=== PATIENT | female | born 1990 | race Caucasian/White ===

== ENCOUNTER 2020-08-03 08:01 | Observation (INO) ==
[2020-08-03] MEDS ORDERED: 0.9 % Sodium Chloride 1,000 ML IVC ONE (08:19)
[2020-08-03 08:39] LABS: Bilirubin,Urine Negative (Negative); Blood,Urine Small (Negative); Clarity,Urine Ex.Turbid (Clear); Color,Urine Yellow (Yellow); Glucose,Urine (UA) Normal (Normal); Ketones,Urine Negative (Negative); Leukocyte Esterase,Urine Large (Negative); Nitrite,Urine Negative (Negative); PH,Urine 6.5 pH Units (5.0-8.0); Protein,Urine 70 mg/dL (Neg-Trace); Urobilinogen,Urine Normal (Normal)
[2020-08-03 08:45] LABS: Basophils % 0.3 %; Eosinophils # 0.2 K/mcL (0.0-0.6); Eosinophils % 1.4 %; Hematocrit 36.6 % (35.3-44.9); Hemoglobin 12.4 g/dL (11.5-15.4); Immature Granulocytes % 0.5 % (0-4); Lymphocytes # 2.4 K/mcL (0.6-4.6); Lymphocytes % 17.8 %; Mean Corpuscular HGB Conc 33.9 g/dL (31.6-35.5); Mean Corpuscular Volume 88.4 fL (83.0-100.0); Mean Platelet Volume 9.9 fL (9.4-12.4); Monocytes # 0.7 K/mcL (0.0-1.3); Monocytes % 5.3 %; Neutrophils # 9.9 K/mcL (1.6-8.9); Platelet Count 196 K/mcL (140-400); Red Blood Count 4.14 M/mcL (3.82-4.97); Red Cell Distribution Width 12.5 % (11.5-14.5); Segmented Neutrophils % 74.7 %; White Blood Count 13.2 K/mcL (4.3-11.1)
[2020-08-03 08:59] LABS: WBC,Urine TNTC per hpf (0-3)
[2020-08-03 09:01] LABS: Bacteria,Urine Present per hpf (None-Few); Squamous Epithelial Cell,Urine Present per hpf (None-Few)
[2020-08-03 09:02] LABS: Renal Epithelial Cells,Urine Present per hpf (None-Few)
[2020-08-03 09:07] LABS: Alanine Aminotransferase 5 Units/L (7-52); Albumin 3.6 g/dL (3.5-5.7); Albumin/Globulin Ratio 1.4 (1.1-2.2); Alkaline Phosphatase 81 Units/L (34-104); Amylase 28 Units/L (29-103); Aspartate Amino Transferase 9 Units/L (13-39); BUN/Creatinine Ratio 10 (6-26); Bilirubin,Indirect 0.4 mg/dL (0.0-1.0); Bilirubin,Total 0.4 mg/dL (0.3-1.0); Blood Urea Nitrogen 5 mg/dL (6-20); Calcium 8.7 mg/dL (8.6-10.3); Carbon Dioxide 21 mEq/L (23-29); Chloride 107 mEq/L (98-107); Globulin 2.6 g/dL (2.4-3.5); Glucose 86 mg/dL (70-105); Lipase 6 Units/L (11-82); Osmolality,Calculated 279 (280-300); Potassium 3.7 mEq/L (3.5-5.1); Sodium 136 mEq/L (136-145); Total Protein 6.2 g/dL (6.4-8.9); eGFR For African Americans > 60 (> 60); eGFR For Non-African Americans > 60 (> 60)
[2020-08-03 09:07] LABS: RBC,Urine Present per hpf (0-3)
[2020-08-03] MEDS ORDERED: cefTRIAXone 1,000 MG in Water for inj. (sterile) 10 ML IVP ONE (09:49)
[2020-08-03] MEDS ORDERED: Ondansetron 4 MG/2 ML VIAL IVP PRN (10:29)
[2020-08-03] MEDS ORDERED: Naloxone 0.4 MG/ML INJ IVP PRN (10:29)
[2020-08-03] MEDS ORDERED: Morphine Sulfate 2 MG/ML SYRINGE IVP PRN (10:31)
[2020-08-03] MEDS ORDERED: 0.9 % Sodium Chloride 1,000 ML IVC SCH (10:45)
[2020-08-03 15:49] VITALS: BP 103/64
[2020-08-04] MEDS ORDERED: cefTRIAXone 1,000 MG in Water for inj. (sterile) 10 ML IVP SCH (09:00)
[2020-08-04] MEDS ORDERED: Prenatal Vit/FA 1 EACH TABLET PO SCH (09:00)
== END 2020-08-03 19:16 | disposition left against medical advice (07) ==
LOC: EMEROOARM 08:01 → 3ANU 08:01
PROVIDERS: ADMIT General Practice; ATTEND General Practice

== ENCOUNTER → 2020-10-07 20:20 | Observation (INO) ==
[~2020-10-07 20:20] MED LIST: Acetaminophen 325 MG TABLET PO ONE
== END | disposition home or self-care (01) ==
LOC: 1NENULAB
PROVIDERS: ADMIT Advanced Practice Midwife; ATTEND Advanced Practice Midwife

== ENCOUNTER → 2020-10-09 07:11 | Observation (INO) ==
[~2020-10-09 07:11] MED LIST changes: -Acetaminophen 325 MG TABLET PO ONE; +Ampicillin 2 MG in 0.9 % Sodium Chloride Mini Bag 100 ML IVPB SCH; +Azithromycin 250 MG TABLET PO STA; +Betamethasone Acet/SodPhos 30 MG/5 ML VIAL IM STA; +Ringers Solution, Lactated 1,000 ML IVC SCH
== END | disposition short-term general hospital (02) ==
LOC: 1NENULAB
PROVIDERS: ADMIT Student in an Organized Health Care Education/Training Program; ATTEND Student in an Organized Health Care Education/Training Program